=== PATIENT | female | born 1965 | race American Indian/Alaskan Native ===

== ENCOUNTER 2017-12-24 00:20 | Emergency (ER) | payer BC, MEDICARE ==
[2017-12-24 01:34] VITALS: BMI 25.6
[2017-12-24] MEDS ORDERED: RANITIDINE HCL 150 MG TABLET (FP) PO ONE (01:47)
[2017-12-24] MEDS ORDERED: MAG HYDROX/AL HYDROX/SIMETH 30 ML UNIT-DOSE CUP PO ONE (01:47)
[2017-12-24] MEDS ORDERED: LIDOCAINE VISCOUS 2% ORAL/TOP 20 ML UNIT-DOSE CUP MM ONE (01:47)
--- NOTE | 2017-12-24 01:50 | PDOC ---
Attending Attestation - Resident Resident Name: Nestor Torres - ED Attending Attestation I have performed the following: I have examined & evaluated the patient, The case was reviewed & discussed with the resident, I agree w/resident's findings & plan - Medical Decision Making 12/24/17 05:48 Patient Name: LING VASQUEZ THIS IS A PRELIMINARY REPORT FROM [facility] DATE OF SERVICE: 2017-12-24 04:21:30 IMAGES: [id number] EXAM: CT ABDOMEN \T\ PELVIS CT W/O CONTR HISTORY: Obstruction COMPARISON: None. FINDINGS: Abdomen Liver: Normal Spleen: Normal Pancreas: Normal Gallbladder: Normal Stomach: Normal Small bowel: Normal Large bowel: Normal Appendix: Not seen Adrenals:Normal Kidneys: Normal Vascular: Normal Lymphatic: Normal Peritoneal: No free peritoneal air or fluid Pelvis: Uterus: normal Rectum: Normal Bladder: Normal The inferior thorax: Normal General: Skeletal: Normal Abdominal wall: Normal IMPRESSION: No acute findings Individualized dose optimization techniques were used for this CT. THIS DOCUMENT HAS BEEN ELECTRONICALLY SIGNED
[2017-12-24] MEDS ORDERED: LIDOCAINE VISCOUS 2% ORAL/TOP 20 ML UNIT-DOSE CUP ONE (02:13)
[2017-12-24] MEDS ORDERED: RANITIDINE HCL 150 MG TABLET (FP) ONE (02:14)
[2017-12-24] MEDS ORDERED: MAG HYDROX/AL HYDROX/SIMETH 30 ML UNIT-DOSE CUP ONE (02:14)
[2017-12-24 03:05] LABS: HEMATOCRIT 38.8 % (32.4-45.2); HEMOGLOBIN 13.3 GM/dL (10.7-15.3); MCHC 34.4 g/dl (32.0-36.0); MEAN CELL VOLUME 81.4 fl (80-96); MEAN PLT VOLUME 7.1 fl (7.5-11.1); PLATELET COUNT 294 K/MM3 (134-434); RBC 4.76 M/mm3 (3.60-5.2); RDW 13.8 % (11.6-15.6); WHITE BLOOD COUNT 8.5 K/mm3 (4.0-10.0)
[2017-12-24 03:33] LABS: ALK PHOS 76 U/L (45-117); ANION GAP 8 MMOL/L (8-16); BILIRUBIN,TOTAL 0.8 mg/dL (0.2-1); BLOOD UREA NITROGEN 8 mg/dL (7-18); CALCIUM 8.5 mg/dL (8.5-10.1); CHLORIDE 92 mmol/L (98-107); CO2 29 mmol/L (21-32); CREATININE 0.6 mg/dL (0.55-1.3); GLUCOSE,RANDOM 106 mg/dL (74-106); LIPASE 330 U/L (73-393); SGOT/AST 27 U/L (15-37); SGPT/ALT 28 U/L (13-61); SODIUM 128 mmol/L (136-145); TOT PROT 7.7 g/dl (6.4-8.2)
[2017-12-24 03:53] LABS: POTASSIUM 3.8 mmol/L (3.5-5.1)
[2017-12-24 04:41] VITALS: TEMP 97.8
[2017-12-24 04:46] LABS: URINE APPEARANCE CLEAR; URINE BILIRUBIN NEGATIVE (<2.0 mg/dL); URINE COLOR COLORLESS; URINE GLUCOSE (UA) NEGATIVE (NEGATIVE); URINE KETONE NEGATIVE (NEGATIVE); URINE LEUK ESTERASE NEGATIVE (NEGATIVE); URINE NITRITE NEGATIVE (NEGATIVE); URINE PROTEIN NEGATIVE (NEGATIVE); URINE UROBILINOGEN NEGATIVE mg/dL (0.2-1.0)
--- NOTE | 2017-12-24 05:00 | PDOC ---
History of Present Illness - General Chief Complaint: Blood Pressure Problem Stated Complaint: HIGH BP Time Seen by Provider: 12/24/17 01:23 History Source: Patient - History of Present Illness Initial Comments: The patient is a 52F presents for evaluation of high blood pressure at home. The patient states that she had been sitting for approximately 30m prior to taking h The patient endorses a history of GERD and is on therapy but does not recall the nameer BP. She reports a SBP in the 180s. She denies history of HTN and does not take any anti-hypertensives. She denies ACEVES, chest pain, or shortness of breath. Upon further questioning, the patient reports that she has not passed flatus for 2d. She reports constipation, with frequent urges to pass a BM but after prolonged effort (~30min) she would only pass a small amount of stool each time that was 'crumbl-y'. She denies a history of constipation or opioid medication use; however, she reports that she took Milk of Magnesia today that was prescribed by her PCP several months ago. She did not have a BM s/p Milk of Magnesia. She does not adhere to a daily bowel regimen. She endorses intermittent, non-radiating, burning epigastric pain that is generally worse post-prandially but is not always in relation to meals. The patient endorses early satiety, intermittent nausea post-prandially, but denies emesis. 12/24/17 04:55 Past History - Past Medical History Allergies/Adverse Reactions: Allergies Allergy/AdvReac Type Severity Reaction Status Date / Time No Known Allergies Allergy Verified 12/24/17 01:33 Home Medications: Ambulatory Orders Atorvastatin Ca [Lipitor] 20 mg PO DAILY 07/29/15 Metformin HCl [Glucophage] 1,000 mg PO BID 07/29/15 Sertraline HCl [Zoloft -] 100 mg PO DAILY 07/29/15 Ondansetron [Zofran Odt -] 4 mg SL TID #10 od.tablet 07/30/15 Pantoprazole Sodium [Protonix] 40 mg PO DAILY #10 tablet. 07/30/15 Sucralfate [Carafate] 1 gm PO QID #56 tablet 07/30/15 Acetaminophen [Tylenol] 650 mg PO Q4H PRN #20 tablet 12/30/16 Cephalexin [Keflex] 500 mg PO Q6H #28 capsule 12/30/16 Diphenhydramine HCl [Benadryl -] 25 mg PO Q8H PRN #21 capsule 12/30/16 Sulfamethoxazole/Trimethoprim [Bactrim Ds -] 1 tab PO BID #14 tablet 12/30/16 Amlodipine Besylate [Norvasc -] 5 mg PO DAILY #7 tablet 12/24/17 COPD: No Diabetes: Yes Hypercholesterolemia: Yes Psychiatric Problems: Yes (depression) - Surgical History Appendectomy: Yes - Immunization History Immunization Up to Date: Yes - Suicide/Smoking/Psychosocial Hx Smoking Status: No Smoking History: Never smoked Have you smoked in the past 12 months: No Number of Cigarettes Smoked Daily: 0 Information on smoking cessation initiated: No Hx Alcohol Use: No Drug/Substance Use Hx: No Substance Use Type: None Review of Systems - Review of Systems Able to Perform ROS?: Yes Comments:: GENERAL/CONSTITUTIONAL: No fever or chills. No weakness HEAD, EYES, EARS, NOSE AND THROAT: No change in vision. No ear pain or discharge. No sore throat CARDIOVASCULAR: No chest pain or shortness of breath RESPIRATORY: No cough, wheezing, or hemoptysis GASTROINTESTINAL: per HPI GENITOURINARY: No dysuria, frequency, or change in urination MUSCULOSKELETAL: No joint or muscle swelling or pain. No neck or back pain SKIN: No rash NEUROLOGIC: No headache, vertigo, loss of consciousness, or change in strength/ sensation ENDOCRINE: No increased thirst. No abnormal weight change HEMATOLOGIC/LYMPHATIC: No anemia, easy bleeding, or history of blood clots ALLERGIC/IMMUNOLOGIC: No hives or skin allergy 12/24/17 04:57 Is the patient limited Khmer proficient: No *Physical Exam - Vital Signs Last Vital Signs Temp Pulse Resp BP Pulse Ox 97.8 F 74 15 174/79 98 12/24/17 04:40 12/24/17 04:40 12/24/17 04:40 12/24/17 04:40 12/24/17 04:40 - Physical Exam Comments: GENERAL: Awake, alert, and fully oriented, in no acute distress HEAD: No signs of trauma, normocephalic, atraumatic EYES: PERRL, EOMI, sclera anicteric, conjunctiva clear ENT: Hearing grossly normal, nares patent, oropharynx clear without exudates. Moist mucosa NECK: Normal ROM, supple, no lymphadenopathy LUNGS: No distress, speaks full sentences, clear to auscultation bilaterally HEART:Regular rate and rhythm, normal S1 and S2, no murmurs appreciated, peripheral pulses normal and equal bilaterally ABDOMEN: Soft, mild epigastric TTP without guarding or rebound; normoactive bowel sounds. No guarding, no rebound EXTREMITIES : Normal inspection, Normal range of motion, no edema. No clubbing or cyanosis NEUROLOGICAL: Cranial nerves II through XII grossly intact. Normal speech, normal gait, no focal sensorimotor deficits SKIN: Warm, Dry, normal turgor, no rashes or lesions noted 12/24/17 04:59 General Appearance: Yes: Nourished ED Treatment Course - LABORATORY CBC & Chemistry Diagram: 12/24/17 02:52 12/24/17 02:52 - ADDITIONAL ORDERS Additional order review: Laboratory Results 12/24/17 02:52 Sodium 128 L Potassium 3.8 Chloride 92 L Carbon Dioxide 29 Anion Gap 8 BUN 8 Creatinine 0.6 Creat Clearance w eGFR > 60 Random Glucose 106 Calcium 8.5 Total Bilirubin 0.8 AST 27 ALT 28 Alkaline Phosphatase 76 Troponin I < 0.02 Total Protein 7.7 Albumin 4.0 Lipase 330 12/24/17 02:52 RBC 4.76 MCV 81.4 MCHC 34.4 RDW 13.8 MPV 7.1 L - RADIOLOGY Radiology Studies Ordered: Category Date Time Status ABDOMEN & PELVIS CT W/O CONTR [CT] Stat CT Scan 12/24/17 01:51 Taken CHEST PA & LAT [RAD] Stat Radiology 12/24/17 01:46 Taken - Medications Given in the ED: ED Medications Discontinued Medications Generic Name Dose Route Start Last Admin Trade Name Freq PRN Reason Stop Dose Admin Al Hydroxide/Mg Hydroxide 30 ml 12/24/17 01:47 12/24/17 02:20 Mylanta Oral Suspension - PO 12/24/17 01:48 30 ml ONCE ONE Administration Lidocaine HCl 20 ml 12/24/17 01:47 12/24/17 02:20 Xylocaine 2% Viscous Oral - MM 12/24/17 01:48 20 ml ONCE ONE Administration Ranitidine HCl 150 mg 12/24/17 01:47 12/24/17 02:20 Zantac - PO 12/24/17 01:48 150 mg ONCE ONE Administration Medical Decision Making - Medical Decision Making The patient is a 52F w/ a history of GERD and HLD who presents for evaluation for SBP 180s and constipation/not passing flatus for 2d Ddx: Essential HTN v hypertensive urgency v uncontrolled HTN; ACS r/o GERD, constipation (chronic v acute), concern for obstruction which could be secondary to impaction/constipation/volvulus/not likely malignancy ED Course CMP, CBC, Lipase, Trop I ECG, CXR CT A&P w/ PO contrast GI cocktail Trop I neg Symptoms moderately improved s/p GI cocktail ECG w/o evidence of acute ischemia CXR w/o evidence of PNA/PNX, mediastinal widening, or SQ emphysema UA w/o evidence of UTI No leukocytosis Hyponatremia and hypochloremia -Plan for NaCl tablets -Pending read of CT for dispo Patient BP improved throughout course -Will Rx Amlodipine 5mg PO daily for 7 day until paitent can f/u w/ PCP. Patient given Rx DC and return precautions -Patient w/ history of elevated BP during past visits CT w/o evidence of obstruction. Contrast seen in the distal bowel Plan for D/C w/ PCP f/u this week Plan discussed w/ patient who is in agreement and verbalized understanding Return precautions given, including ACEVES, dizziness/LOC/blurry vision, chest pain , emesis, fevers, worsening pain, or new concerning symptoms Dispo: Home w/ Rx and PCP f/u 12/24/17 05:07 *DC/Admit/Observation/Transfer Diagnosis at time of Disposition: GERD (gastroesophageal reflux disease) Qualifiers: Esophagitis presence: esophagitis presence not specified Qualified Code(s): K21.9 - Gastro-esophageal reflux disease without esophagitis Constipation Qualifiers: Constipation type: unspecified constipation type Qualified Code(s): K59.00 - Constipation, unspecified Hypertension Qualifiers: Hypertension type: unspecified secondary hypertension Qualified Code(s): I15.9 - Secondary hypertension, unspecified - Discharge Dispostion Disposition: HOME Condition at time of disposition: Stable Decision to Admit order: No - Prescriptions Prescriptions: Amlodipine Besylate [Norvasc -] 5 mg PO DAILY #7 tablet - Referrals Referrals: Karol Pierce MD [Primary Care Provider] - Ruben Dominguez DO [Staff Physician] - - Patient Instructions Printed Discharge Instructions: DI for High Blood Pressure, DI for Constipation Additional Instructions: You were seen in the Emergency Room today for high blood pressure and constipation. Please review the handouts provided at discharge. Please adhere to your bowel regimen that was prescribed by your primary care provider. Please follow up with your primary care provider within the next 1-3 and be sure to discuss your blood pressure with him as well as your continued constipation. A prescription for high blood pressure, amlodipine, was sent to the pharmacy you specified. Please take as directed. Discontinue use if you experience headaches , lightheadedness, or any other concerning symptoms. Return to the Emergency Room if you develop fevers, worsening symptoms, do not pass flatus for more than 24 hours, or any new concerning symptoms. - Post Discharge Activity
[2017-12-24] MEDS ORDERED: SODIUM CHLORIDE 0.9% 500 ML INFUS.BAG IV ONE (05:01)
[2017-12-24] MEDS ORDERED: SODIUM CHLORIDE 1 GM TABLET PO ONE (05:18)
[2017-12-24 06:08] VITALS: BP 149/80; PULSE 70
--- NOTE | 2017-12-24 12:05 | EKG ---
Test Reason : Blood Pressure : / mmHG Vent. Rate : 071 BPM Atrial Rate : 071 BPM P-R Int : 168 ms QRS Dur : 098 ms QT Int : 432 ms P-R-T Axes : 061 015 034 degrees QTc Int : 469 ms NORMAL SINUS RHYTHM POSSIBLE LEFT ATRIAL ENLARGEMENT NONSPECIFIC T WAVE ABNORMALITY PROLONGED QT ABNORMAL ECG NO PREVIOUS ECGS AVAILABLE Confirmed by GALILEO ROMAN MD ([id number]) on 12/24/2017 12:05:36 PM Referred By: Confirmed By:GALILEO ROMAN MD
== END 2017-12-24 06:15 | disposition home or self-care (01) ==
LOC: JER 00:20
DX: I10 Essential (primary) hypertension (principal); E87.1 Hypo-osmolality and hyponatremia; E87.8 Other disorders of electrolyte and fluid balance, not elsewhere classified; K21.9 Gastro-esophageal reflux disease without esophagitis; K59.00 Constipation, unspecified
CPT/HCPCS: 36415; 71046-TC-FY; 74176-TC; 80053; 81003; 83690; 84484; 85027; 87086; 93005; 93010; 99283-25

== ENCOUNTER 2021-05-31 16:01 | Emergency (ER) | payer BC, MEDICARE ==
[2021-05-31 16:15] VITALS: TEMP 98.1; BMI 26.9
[2021-05-31] MEDS ORDERED: ACETAMINOPHEN 1000 MG/100 ML BAG IVPB ONE (16:51)
[2021-05-31] MEDS ORDERED: ACETAMINOPHEN INJECTION 100 ML IVPB ONE (17:33)
[2021-05-31] MEDS ORDERED: LIDOCAINE 5% TOPICAL PATCH TP ONE (17:41)
[2021-05-31] MEDS ORDERED: LIDOCAINE 5% TOPICAL PATCH ONE (17:50)
[2021-05-31 17:54] LABS: BASO % 0.7 % (0-2.0); HEMATOCRIT 37.3 % (32.4-45.2); HEMOGLOBIN 12.7 GM/dL (10.7-15.3); LYMPH % 33.2 % (8-40); MCH 28.3 pg (25.7-33.7); MEAN PLT VOLUME 7.2 fl (7.5-11.1); MONO % 6.3 % (3.8-10.2); NEUT % 55.8 % (42.8-82.8); PLATELET COUNT 274 10^3/uL (134-434); RBC 4.49 M/mm3 (3.60-5.2); RDW 14.1 % (11.6-15.6); WHITE BLOOD COUNT 5.5 K/mm3 (4.0-10.0)
[2021-05-31 18:00] LABS: EPI CELLS 4 /uL (0-25.1); HYALINE CASTS 0 /uL (0-3.1); URINE APPEARANCE CLEAR; URINE BACTERIA 2 /uL (0-1359); URINE BILIRUBIN NEGATIVE (NEGATIVE); URINE COLOR YELLOW; URINE GLUCOSE (UA) NEGATIVE (NEGATIVE); URINE KETONE NEGATIVE (NEGATIVE); URINE LEUK ESTERASE TRACE (NEGATIVE); URINE NITRITE NEGATIVE (NEGATIVE); URINE PROTEIN NEGATIVE (NEGATIVE); URINE RBC 1 /uL (0-23.9); URINE UROBILINOGEN 0.2 mg/dL (0.2-1.0); URINE WBC 8 /uL (0-25.8)
[2021-05-31 18:06] LABS: CALCIUM 8.9 mg/dL (8.5-10.1)
[2021-05-31 18:07] VITALS: BP 153/74; PULSE 70
[2021-05-31 18:07] LABS: ALBUMIN 3.7 g/dl (3.4-5.0); BLOOD UREA NITROGEN 12.9 mg/dL (7-18); MAGNESIUM 1.8 mg/dL (1.8-2.4)
[2021-05-31 18:10] LABS: CREATININE 0.8 mg/dL (0.55-1.3)
[2021-05-31 18:12] LABS: BILIRUBIN,TOTAL 0.5 mg/dL (0.2-1); TOT PROT 7.2 g/dl (6.4-8.2)
[2021-05-31] MEDS ORDERED: LIDOCAINE PATCH REMOVAL MC SCH (22:00)
== END 2021-05-31 19:32 | disposition home or self-care (01) ==
LOC: JER 16:01
PROC: 3E0333Z Introduction of Anti-inflammatory into Peripheral Vein, Percutaneous Approach (ICD-10-PCS; principal; 2021-05-31)
DX: R10.9 Unspecified abdominal pain (principal)
CPT/HCPCS: 36415; 71045-TC-FY; 74176-TC; 80053; 81003; 83690; 83735; 85025; 87086; 93005; 93010; 99285-25

== ENCOUNTER 2023-08-09 19:05 | Emergency (ER) | payer BC, MEDICARE ==
[2023-08-09 19:14] VITALS: BP 159/91; PULSE 80; RESP 20; TEMP 98; BMI 23.0
[2023-08-09] MEDS ORDERED: ONDANSETRON *ODT* 4 MG TABLET ONE ×2 (20:36→20:59)
[2023-08-09] MEDS ORDERED: ACETAMINOPHEN INJECTION 100 ML IVPB ONE (20:36)
[2023-08-09] MEDS ORDERED: FAMOTIDINE 10 MG/ML VIAL IVPB ONE ×2 (20:36→20:37)
[2023-08-09 20:37] LABS: BASO % 0.5 % (0-2.0); EOS % 3.6 % (0-4.5); HEMATOCRIT 37.1 % (32.4-45.2); HEMOGLOBIN 12.6 GM/dL (10.7-15.3); LYMPH % 29.6 % (8-40); MCH 28.3 pg (25.7-33.7); MCHC 33.9 g/dl (32.0-36.0); MEAN CELL VOLUME 83.6 fl (80-96); MONO % 6.8 % (3.8-10.2); NEUT % 59.5 % (42.8-82.8); PLATELET COUNT 240 10^3/uL (134-434); RBC 4.44 M/mm3 (3.60-5.2); RDW 13.6 % (11.6-15.6); WHITE BLOOD COUNT 7.1 K/mm3 (4.0-10.0)
[2023-08-09 20:37] LABS: PH,URINE 6.5 (5.0-8.0); URINE APPEARANCE CLEAR; URINE BILIRUBIN NEGATIVE (NEGATIVE); URINE COLOR YELLOW; URINE GLUCOSE (UA) TRACE (NEGATIVE); URINE KETONE NEGATIVE (NEGATIVE); URINE LEUK ESTERASE NEGATIVE (NEGATIVE); URINE NITRITE NEGATIVE (NEGATIVE); URINE PROTEIN NEGATIVE (NEGATIVE); URINE UROBILINOGEN 0.2 mg/dL (0.2-1.0)
[2023-08-09 20:54] LABS: INR 0.91 (0.83-1.09); PROTHROMBIN TIME (PATIENT) 10.3 SEC (9.7-13.0)
[2023-08-09 20:56] LABS: ACTIVATED PTT 30.1 SECONDS (25.2-36.5)
[2023-08-09] MEDS: FAMOTIDINE 20 MG/50 ML IVPB 20 MG/50 ML MG IVPB ONE (20:56)
[2023-08-09] MEDS: ACETAMINOPHEN 1000 MG/100 ML BAG IVPB ONE (20:56)
[2023-08-09 20:57] LABS: POTASSIUM 4.4 mmol/L (3.5-5.1)
[2023-08-09 21:00] LABS: CALCIUM 8.5 mg/dL (8.5-10.1)
[2023-08-09 21:01] LABS: ALBUMIN 3.5 g/dl (3.4-5.0); BLOOD UREA NITROGEN 15.9 mg/dL (7-18); MAGNESIUM 2.1 mg/dL (1.8-2.4)
[2023-08-09] MEDS: ONDANSETRON 4 MG TABLET PO ONE (21:02)
[2023-08-09 21:04] LABS: CREATININE 0.8 mg/dL (0.55-1.3)
[2023-08-09 21:06] LABS: BILIRUBIN,TOTAL 0.7 mg/dL (0.2-1)
[2023-08-09 21:08] LABS: N-TERMINAL BNP 61.6 pg/ml (5-125)
[2023-08-09] MEDS ORDERED: ASPIRIN 81 MG CHEWABLE TABLETS ONE (21:45)
[2023-08-09] MEDS: ASPIRIN 81 MG CHEWABLE TABLETS PO ONE (21:51)
== END 2023-08-09 23:21 | disposition home or self-care (01) ==
LOC: JER 19:05
PROC: 3E033GC Introduction of Other Therapeutic Substance into Peripheral Vein, Percutaneous Approach (ICD-10-PCS; principal; 2023-08-09)
PROC: 3E033GC Introduction of Other Therapeutic Substance into Peripheral Vein, Percutaneous Approach (ICD-10-PCS; 2023-08-09)
DX: R07.9 Chest pain, unspecified (principal); R06.02 Shortness of breath; R11.0 Nausea; R53.1 Weakness; Z20.822 Contact with and (suspected) exposure to COVID-19
CPT/HCPCS: 0241U-QW; 36415; 71046-TC-FY; 80053; 81003; 83735; 83880; 84484; 85025; 85379; 85610; 85730; 87086; 93005; 93010; 99285-25; J0131